=== PATIENT | female | born 1935 | race Caucasian/White ===

== ENCOUNTER → 2017-07-03 | Outpatient (CLI) | payer MEDICARE, BC ==
--- NOTE | 2017-07-07 09:27 | RSPPFT ---
DATE OF PROCEDURE: 07/03/17 COMMENTS: VOLUMES DYNAMIC: FVC normal; FEV1 mildly reduced. STATIC: TLC, RV and FRC normal. FLOWS: FEV1% moderately reduced; FEF 25-75 severely reduced. DIFFUSION: Mildly reduced. FLOW VOLUME LOOP: Pattern of variable intrathoracic airways obstruction. IMPRESSION: Moderately severe obstructive ventilatory defect with no significant hyperinflation. Airways resistance is increased and there is some improvement post-bronchodilator.
== END ==
LOC: HRSP 09:56
PROVIDERS: ATTEND Internal Medicine
DX: J45.909 Unspecified asthma, uncomplicated (principal)
CPT/HCPCS: 94060; 94620; 94726; 94729; 95012